=== PATIENT | male | born 1995 | race African-American/Black ===

== ENCOUNTER 2018-12-25 11:29 | Emergency (ER) | payer OTHER ==
[2018-12-25 11:36] VITALS: BMI 20.8
[2018-12-25] MEDS ORDERED: TORADOL10 MG PO (14:48)
[2018-12-25 15:24] VITALS: BP 121/68
== END 2018-12-25 15:24 | disposition home or self-care (01) ==
LOC: D.ER 11:29
DX: J02.9 Acute pharyngitis, unspecified (principal)